=== PATIENT | male | born 1960 | race Caucasian/White ===

== ENCOUNTER → 2017-01-04 | Day surgery (SDC) | payer OTHER ==
[~2017-01-04] MED LIST: ALLEGRA PO; ALLEGRA-D1 TAB.SR2 PO; ASPIRIN EC81 M1 PO; ASPIRIN81 M1 PO; LIPITOR40 MG PO; LOPRESSOR PO; MULTIPLE VITAMI1 T11 PO; VITAMIN B12 PO
--- NOTE | ~2017-01-04 | OR ---
Unit #: [id number] #: [id number] Patient: IRA HARDY [id number] [address] [place], [place] [address] [id number] O MR#: [id number] NAME: IRA HARDY. ROOM: Date of Procedure: 01/04/2017 Admission Date: 01/04/2017 Surgeon: Eloy Reno M.D. : 1960 Attending Physician: Eloy Reno M.D. Primary Care Physician: Chaitanya Quintero M.D. OPERATIVE REPORT JOB NOTE: CC: DR. CHAITANYA QUINTERO. ATTENDING PHYSICIAN Dr. Chaitanya Quintero. PREOPERATIVE DIAGNOSIS Colon cancer screening. PROCEDURE PERFORMED Colonoscopy up to cecum and terminal ileum with excellent preparation and good visualization. POSTOPERATIVE DIAGNOSES Completely normal examination up to cecum and terminal ileum. The patient did have small to medium-sized internal hemorrhoids. RECOMMENDATIONS Repeat surveillance colonoscopy in future. SEDATION USED MAC. DESCRIPTION OF PROCEDURE Following detailed explanation of potential risks and complications of a colonoscopy, namely perforation, bleeding, and complication related to sedation, the patient was brought to GI lab and laid in the left lateral decubitus position. A digital rectal examination was performed which was normal. Lubricated tip of the Olympus video colonoscope was inserted through the anus and advanced under direct vision. The scope was advanced past rectosigmoid into descending colon. No diverticula were seen in this area. The scope tip was then navigated all the way up to cecum with visualization of the ileocecal valve and the appendiceal orifice. Preparation was excellent with good visualization and photodocumentation was obtained. Last several inches of the terminal ileum were also visualized after intubation of the ileocecal valve and appeared normal. Successive segments of the colonic mucosa were examined upon withdrawal and appeared unremarkable. There being no polyps, mass lesions, AVMs, or diverticula. The patient did have medium-sized internal hemorrhoids seen at the anal verge on retroflexion. The scope was then withdrawn and the patient returned to the recovery area. He tolerated the procedure without any postprocedure complications. Unit #: [id number] #: [id number] Patient: IRA HARDY Dictated by... Patricia Kenny/susy TD: 01/04/2017 22:29 JOB #: [id number] OPERATIVE REPORT Page 1 of 1 X Eloy Reno MD PROCEDURE OPERATIVE NOTE
== END | disposition home or self-care (01) ==
LOC: COPS 06:45
DX: Z12.11 Encounter for screening for malignant neoplasm of colon (principal); K64.8 Other hemorrhoids; I10 Essential (primary) hypertension; E11.9 Type 2 diabetes mellitus without complications; E78.5 Hyperlipidemia, unspecified; Z88.2 Allergy status to sulfonamides; Z79.899 Other long term (current) drug therapy; Z98.890 Other specified postprocedural states
CPT/HCPCS: 82947; J2250

== ENCOUNTER → 2017-05-14 | Outpatient (CLI) | payer OTHER ==
--- NOTE | ~2017-05-14 | CR97 ---
[facility] A Service of [facility] RADIOLOGY TEXT RESULTS PATIENT: IRA HARDY LOCATION: [facility] : 58 UNIT #: [id number] AGE: [address]: ILIANA QUINTERO MD SEX: M ORDER DR: [id number] [facility] [address] [place], [place] [address] [id number] O MR#: [id number] Acc #: [id number] NAME: IRA HARDY : 1960 SEX: M STUDY DATE/TIME: 05/14/2017 12:26 UNIT: [facility] ROOM: STUDY DESCRIPTION: CR Esophagram Attending Physician: Iliana Quintero M.D. Referring Physician: Iliana Quintero M.D. Ordering Physician: Iliana Quintero M.D. Primary Care Physician: Iliana Quintero M.D. MEDICAL IMAGING REPORT This report is preliminary unless electronic signature is present EXAM Esophagram 05/14/2017 HISTORY Difficulty swallowing. FINDINGS Initial swallowing evaluation is normal without aspiration, with normal laryngeal movement. The esophagus is normal in course and caliber. There is no stricture or mass or ulceration. Motility is normal. IMPRESSION 1. Normal esophagram. Normal swallowing. 2. 0.6 minutes of fluoroscopy and 36 fluoroscopic spot images obtained. Dictated by... Emil Skelton M.D. THIS IS AN ELECTRONICALLY VERIFIED REPORT Emil Skelton M.D. at 05/15/2017 2:54 PM TEV/psc TD: 05/14/2017 23:32 JOB #: [id number] MEDICAL IMAGING REPORT Page 1 of 1 COPY
== END | disposition home or self-care (01) ==
LOC: CRAD 10:13
DX: K20.9 Esophagitis, unspecified (principal)
CPT/HCPCS: 74220